=== PATIENT | female | born 1955 | race Caucasian/White ===

== ENCOUNTER → 2016-02-16 | Outpatient (CLI) | payer BC ==
[~2016-02-16] MED LIST: CALTRATE-600 W600 MG PO; ETHAMBUTOL HYD400 MG PO; NATURE'S BLE1000 MCG PO; RIFADIN300 MG PO; SINGULAIR 110 MG/TAB PO; ULTRAM 50MG TAB50 MG PO; VITAMIN B COMPL1 SGL PO; WOMEN'S DAILY F1 TAB PO; ZITHROMAX500 M2 PO; ZYRTEC 10MG10 MG PO
== END ==
LOC: MC.RAD 08:00
DX: Z12.31 Encounter for screening mammogram for malignant neoplasm of breast (principal)

== ENCOUNTER → 2017-02-19 | Outpatient (CLI) | payer BC | LOC: MC.RAD 13:51 | DX: Z12.31 Encounter for screening mammogram for malignant neoplasm of breast (principal); R92.0 Mammographic microcalcification found on diagnostic imaging of breast ==

== ENCOUNTER → 2017-02-22 | Outpatient (CLI) | payer BC | LOC: MC.RAD 08:27 | DX: R92.0 Mammographic microcalcification found on diagnostic imaging of breast (principal) ==

== ENCOUNTER → 2018-04-14 | Outpatient (CLI) | payer BC ==
[~2018-04-14] MED LIST changes: +CARAFATE 1GM1 G PO; +CIPRO 500MG TA500 MG PO; +FLAGYL500 MG PO; +PRIL40 PO; +PROBIOTIC ACID1 EAC3 PO
== END ==
LOC: MC.RAD 14:29
DX: Z12.31 Encounter for screening mammogram for malignant neoplasm of breast (principal)

== ENCOUNTER → 2019-04-23 | Outpatient (CLI) | payer BC | LOC: MC.RAD 16:23 | DX: Z12.31 Encounter for screening mammogram for malignant neoplasm of breast (principal) ==

== ENCOUNTER → 2020-04-25 | Outpatient (CLI) | payer BC | LOC: MC.RAD 07:59 | DX: Z12.31 Encounter for screening mammogram for malignant neoplasm of breast (principal) ==

== ENCOUNTER → 2020-09-19 | Outpatient (CLI) | payer BC | LOC: COL.RAD 09:07 | DX: M18.11 Unilateral primary osteoarthritis of first carpometacarpal joint, right hand (principal) | CPT/HCPCS: J3301; Q9967 ==

== ENCOUNTER → 2021-04-26 | Outpatient (CLI) | payer BC | LOC: MC.RAD 07:40 | DX: Z12.31 Encounter for screening mammogram for malignant neoplasm of breast (principal) ==

== ENCOUNTER → 2022-04-26 | Outpatient (CLI) | payer BC | LOC: MC.RAD 11:04 | DX: Z12.31 Encounter for screening mammogram for malignant neoplasm of breast (principal) ==